=== PATIENT | female | born 1980 | race Caucasian/White ===

== ENCOUNTER 2017-01-03 18:24 | Emergency (ER) | payer OTHER ==
[2017-01-03 18:36] VITALS: BP 149/88
--- NOTE | 2017-01-03 19:18 | ER Document Report ---
ED Medical Screen (RME) - General Chief Complaint: Headache Stated Complaint: NAUSEA,VOMITING,SORE THROAT Time Seen by Provider: 01/03/17 19:05 Mode of Arrival: Ambulatory Information source: Patient TRAVEL OUTSIDE OF THE [place] 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 SHUNT REMOVED 2 YRS AGO Quality of pain: Achy, Dull Severity: Moderate Associated Symptoms: Nausea, Vomiting, Other - TINNITUS L. EAR, L. FACIAL NUMBNESS, DYSPHAGIA Exacerbated by: Denies Relieved by: Denies Similar symptoms previously: Yes - PRIOR TO SHUNT Recently seen / treated by doctor: Yes - 2 d AGO, TREATED FOR "FLUID IN EAR" - Related Data Smoking: Non-smoker Frequency of alcohol use: Occasional Drug Abuse: None Allergies/Adverse Reactions: ketorolac tromethamine [From Toradol] Allergy (Severe, Verified 01/03/17 18:32) Anaphylaxis metoclopramide HCl [From Reglan] Allergy (Severe, Verified 01/03/17 18:32) Anaphylaxis prochlorperazine edisylate [From Compazine] Allergy (Severe, Verified 01/03/17 18:32) Anaphylaxis prochlorperazine maleate [From Compazine] Allergy (Severe, Verified 01/03/17 18: 32) Anaphylaxis codeine [Codeine] Allergy (Verified 01/03/17 18:32) fentanyl [Fentanyl] Allergy (Verified 01/03/17 18:32) Past Medical History - General Information source: Patient - Social History Cigarette use (# per day): No Frequency of alcohol use: Occasional Drug Abuse: None Lives with: Family Family history: Reviewed & Not Pertinent - Past Medical History Cardiac Medical History: Denies: Hx Coronary Artery Disease, Hx Heart Attack, Hx Hypertension Pulmonary Medical History: Reports: Hx Bronchitis Denies: Hx Asthma, Hx COPD, Hx Pneumonia Neurological Medical History: Reports: Hx Seizures - 1 seizure. Denies: Hx Cerebrovascular Accident Renal/ Medical History: Reports: Hx Kidney Stones, Hx Ovarian Cysts. Denies: Hx Peritoneal Dialysis Musculoskeltal Medical History: Denies Hx Arthritis Psychiatric Medical History: Reports: Hx Anxiety Past Surgical History: Reports: Hx Appendectomy, Hx Section - x2, Hx Cholecystectomy, Hx Kidney (Renal Surgery) - Paresh kidney stents, Hx Neurologic Surgery - TAX PROCESSOR shunt (2002), shunt assist (November 2011), Hx TAX PROCESSOR Shunt - Immunizations Hx Diphtheria, Pertussis, Tetanus Vaccination: Yes Review of Systems - Review of Systems Constitutional: No symptoms reported. denies: Chills, Fever EENT: See HPI Cardiovascular: No symptoms reported Respiratory: No symptoms reported Gastrointestinal: See HPI Musculoskeletal: See HPI, Neck pain Skin: No symptoms reported Neurological/Psychological: See HPI, Headaches, Numbness Physical Exam - Vital signs Vitals: Temp Pulse Resp BP Pulse Ox 98.5 F 109 H 16 149/88 H 98 01/03/17 18:32 01/03/17 18:32 01/03/17 18:32 01/03/17 18:32 01/03/17 18:32 Interpretation: Hypertensive, Tachycardic. No: Tachypneic, Febrile - General General appearance: Appears well, Alert In distress: None - HEENT Head: Normocephalic, Tenderness - MILD, OVER L. MASTOID Eyes: Normal Ears: Normal External canal: Normal Tympanic membrane: Normal Course - Vital Signs Vital signs: Temp Pulse Resp BP Pulse Ox 98.5 F 109 H 16 149/88 H 98 01/03/17 18:32 01/03/17 18:32 01/03/17 18:32 01/03/17 18:32 01/03/17 18:32
[2017-01-03] MEDS ORDERED: HALOPERIDOL LACTATE INJ 5 MG/1 ML VIAL IV ONE (19:52)
[2017-01-03] MEDS ORDERED: DIPHENHYDRAMINE HCL 50 MG/ML VIAL IV ONE ×2 (19:52→20:57)
[2017-01-03] MEDS ORDERED: DEXAMETHASONE SOD PHOS INJ 10 MG/1 ML VIAL IV ONE (19:53)
--- NOTE | 2017-01-03 20:01 | RADIOLOGY REPORT (SQ) ---
EXAM DESCRIPTION: CT HEAD WITHOUT COMPLETED DATE/TIME: 01/03/2017 7:26 pm REASON FOR STUDY: HEADACHE, H/O CYST HYDROCEPHALUS COMPARISON: 08/28/2015 TECHNIQUE: Axial images acquired through the brain without intravenous contrast. Images reviewed wi th bone, brain and subdural windows. Images stored on PACS. All CT scanners at this facility use dose modulation, iterative reconstruction, and/or weight based d osing when appropriate to reduce radiation dose to as low as reasonably achievable (ALARA). [facility]: Dose Right [facility]: CareDose [facility]: Dose Right [facility]: Teradose 4D [facility]: Novavax RADIATION DOSE: Up-to-date CT equipment and radiation dose reduction techniques were employed. CTDIv ol: 64.6 mGy. DLP: 1034 mGy-cm. mGy. LIMITATIONS: None. FINDINGS: VENTRICLES: Normal size and contour. CEREBRUM: Stable volume loss right temporal lobe compatible with prior surgery/cyst appear No masses. No hemorrhage. No midline shift. Normal ward/white matter differentiation. No evidence for acute infarction. CEREBELLUM: No masses. No hemorrhage. No alteration of density. No evidence for acute infarction. EXTRAAXIAL SPACES: No fluid collections. No masses. ORBITS AND GLOBE: No intra- or extraconal masses. Normal contour of globe without masses. CALVARIUM: No fracture. PARANASAL SINUSES: No fluid or mucosal thickening. SOFT TISSUES: No mass or hematoma. OTHER: Intracranial portion of shunt catheter remains in place however the extracranial portion has b een removed. IMPRESSION: PARTIAL REMOVAL OF RIGHT TEMPORAL LOBE SHUNT CATHETER. OTHERWISE STABLE NONCONTRAST CT APPEARANCE OF THE HEAD. TECHNICAL DOCUMENTATION: JOB ID: [id number] Quality ID # [id number]: Final reports with documentation of one or more dose reduction techniques (e.g., Au tomated exposure control, adjustment of the mA and/or kV according to patient size, use of iterative reconstruction technique) 2010 [employer]- All Rights Reserved
--- NOTE | 2017-01-03 20:07 | RADIOLOGY REPORT (SQ) ---
EXAM DESCRIPTION: CT SOFT TISSUE NECK WITHOUT COMPLETED DATE/TIME: 01/03/2017 7:26 pm REASON FOR STUDY: HEADACHE, H/O CYST HYDROCEPHALUS COMPARISON: CORRELATION MADE TO CHEST CT FROM 02/23/2016 TECHNIQUE: Noncontrast scanning from skull base through lung apices with review of bone, soft tissue and lung windows. Reconstructed coronal and sagittal MPR images reviewed. All images stored on PAC S. All CT scanners at this facility use dose modulation, iterative reconstruction, and/or weight based d osing when appropriate to reduce radiation dose to as low as reasonably achievable (ALARA). [facility]: Dose Right [facility]: CareDose [facility]: Dose Right [facility]: Teradose 4D [facility]: [employer] RADIATION DOSE: Up-to-date CT equipment and radiation dose reduction techniques were employed. CTDIv ol: 15.9 mGy. DLP: 516 mGy-cm. mGy. LIMITATIONS: None. FINDINGS: SKULL BASE: Intact. MAJOR SALIVARY GLANDS: No solid or cystic masses. No inflammatory changes. LYMPHADENOPATHY: No adenopathy. MUCOSAL MASSES OR ASYMMETRY: No mucosal masses or asymmetry. LARYNX/CORDS: No abnormal findings. LUNG APICES: Stable 4 mm right upper lobe pulmonary nodule. BONES: Intact. THYROID: Normal size. No masses. PARANASAL SINUSES: Clear. OTHER: Interval removal of extracranial portion shunt catheter. IMPRESSION: NO SIGNIFICANT FINDING IN THE SOFT TISSUES OF THE NECK. INTERVAL REMOVAL EXTRACRANIAL P ORTION SHUNT CATHETER. TECHNICAL DOCUMENTATION: JOB ID: [id number] Quality ID # [id number]: Final reports with documentation of one or more dose reduction techniques (e.g., Au tomated exposure control, adjustment of the mA and/or kV according to patient size, use of iterative reconstruction technique) 2010 [employer]- All Rights Reserved
[2017-01-03] MEDS ORDERED: NORMAL SALINE 1000 ML 1,000 ML IV ONE (20:57)
[2017-01-03] MEDS ORDERED: ONDANSETRON HCL INJ/PF 4 MG/2 ML SDV IV ONE (20:58)
[2017-01-03] MEDS ORDERED: ONDANSETRON 4 MG TAB.RAPDIS PO ONE (21:52)
[2017-01-03] MEDS ORDERED: MORPHINE SULFATE IR 15 MG TABLET PO ONE (21:53)
[2017-01-03] MEDS ORDERED: HYDROCODONE/ACETAMINOPHEN 5-325 MG 6 TAB/DSPK PO PRN (23:08)
--- NOTE | 2017-01-03 23:09 | ER Document Report ---
ED Headache - General Chief Complaint: Headache Stated Complaint: NAUSEA,VOMITING,SORE THROAT Time Seen by Provider: 01/03/17 19:05 Mode of Arrival: Ambulatory Notes: Patient is a 36-year-old female with a past medical history of a prior brain cyst that was medically managed and did have a MOUNTAIN BIKE GUIDE shunt until 2013 who presents with 3 days of a bitemporal, throbbing, constant headache. She notes an associated pain over her temporomandibular junction on the left. She has seen her primary care doctor regarding this concern was started on muscle relaxers that did not improve her symptoms. She has a history of similar headaches in the past. Her headache did start gradually got progressively worse. She notes associated photophobia and phonophobia as well as nausea and vomiting. Denies any weakness, numbness, altered mental status. TRAVEL OUTSIDE OF THE [place] IN LAST 30 DAYS: No - Related Data Allergies/Adverse Reactions: ketorolac tromethamine [From Toradol] Allergy (Severe, Verified 01/03/17 18:32) Anaphylaxis metoclopramide HCl [From Reglan] Allergy (Severe, Verified 01/03/17 18:32) Anaphylaxis prochlorperazine edisylate [From Compazine] Allergy (Severe, Verified 01/03/17 18:32) Anaphylaxis prochlorperazine maleate [From Compazine] Allergy (Severe, Verified 01/03/17 18: 32) Anaphylaxis codeine [Codeine] Allergy (Verified 01/03/17 18:32) fentanyl [Fentanyl] Allergy (Verified 01/03/17 18:32) Past Medical History - General Information source: Patient - Social History Smoking Status: Never Smoker Cigarette use (# per day): No Chew tobacco use (# tins/day): No Frequency of alcohol use: None Drug Abuse: None Lives with: Family Family History: Reviewed & Not Pertinent - Past Medical History Cardiac Medical History: Denies: Hx Coronary Artery Disease, Hx Heart Attack, Hx Hypertension Pulmonary Medical History: Reports: Hx Bronchitis Denies: Hx Asthma, Hx COPD, Hx Pneumonia Neurological Medical History: Reports: Hx Seizures - 1 seizure. Denies: Hx Cerebrovascular Accident Renal/ Medical History: Reports: Hx Kidney Stones, Hx Ovarian Cysts. Denies: Hx Peritoneal Dialysis Musculoskeltal Medical History: Denies Hx Arthritis Psychiatric Medical History: Reports: Hx Anxiety Past Surgical History: Reports: Hx Appendectomy, Hx Section - x2, Hx Cholecystectomy, Hx Kidney (Renal Surgery) - Paresh kidney stents, Hx Neurologic Surgery - MOUNTAIN BIKE GUIDE shunt (2002), shunt assist (November 2011), Hx MOUNTAIN BIKE GUIDE Shunt - Immunizations Hx Diphtheria, Pertussis, Tetanus Vaccination: Yes Review of Systems - Review of Systems Notes: Constitutional: Negative for fever. HENT: Negative for sore throat. Eyes: Negative for visual changes. Cardiovascular: Negative for chest pain. Respiratory: Negative for shortness of breath. Gastrointestinal: Negative for abdominal pain, positive for nausea Genitourinary: Negative for dysuria. Musculoskeletal: Negative for back pain. Skin: Negative for rash. Neurological: Positive for headaches, negative for weakness or numbness. 10 point ROS negative except as marked above and in HPI. Physical Exam - Vital signs Vitals: Temp Pulse Resp BP Pulse Ox 98.5 F 109 H 16 149/88 H 98 01/03/17 18:32 01/03/17 18:32 01/03/17 18:32 01/03/17 18:32 01/03/17 18:32 Interpretation: Tachycardic Notes: PHYSICAL EXAMINATION: GENERAL: Well-appearing, well-nourished and in no acute distress. HEAD: Atraumatic, normocephalic. EYES: Pupils equal round and reactive to light, extraocular movements intact, sclera anicteric, conjunctiva are normal. ENT: nares patent, oropharynx clear without exudates. Moist mucous membranes. Focal pain on palpation of the left temporomandibular junction NECK: Normal range of motion, supple without lymphadenopathy LUNGS: Breath sounds clear to auscultation bilaterally and equal. No wheezes rales or rhonchi. HEART: Regular rate and rhythm without murmurs ABDOMEN: Soft, nontender, normoactive bowel sounds. No guarding, no rebound. No masses appreciated. EXTREMITIES: Normal range of motion, no pitting or edema. No cyanosis. NEUROLOGICAL: Face symmetric. Tongue protrudes midline. Extraocular motions intact. Pupils are 2 mm and equally reactive. Normal speech, normal gait. 5 out of 5 strength in both the distal and proximal upper and lower extremities bilaterally. Sensation is grossly intact throughout. Finger to nose testing normal. Pronator drift normal. PSYCH: Normal mood, normal affect. SKIN: Warm, Dry, normal turgor, no rashes or lesions noted. Course - Re-evaluation Re-evalutation: 01/03/17 23:06 Presentation of a headache that appears to be most consistent with tension versus migrainous type headache. Given the patient does have focal tenderness to the left temporomandibular junction TMJ is also on the differential. Headache was not maximal in onset, patient has no focal neurologic deficits, no nuchal rigidity, vital signs within normal limits, no papilledema, and patient is overall well in appearance. Based on clinical history and examination I do not suspect an acute subarachnoid hemorrhage, dural venous sinus thrombosis, acute meningitis, or intercranial mass. Does have a history of a brain cyst with a prior MOUNTAIN BIKE GUIDE shunt that was removed in 2013. A CT of the head and neck did not demonstrate any acute findings and shows stable changes without any evidence of increased intracranial pressure relative to the prior study when she had a shunt. Patient has had resolution of her pain here after administration of a migraine cocktail as well as some oral morphine. At this time will discharge with return precautions and follow-up recommendations. Verbal discharge instructions given a the bedside and opportunity for questions given. Medication warnings reviewed. Patient is in agreement with this plan and has verbalized understanding of return precautions and the need for primary care follow-up in the next 24-72 hours. - Vital Signs Vital signs: Temp Pulse Resp BP Pulse Ox 98.5 F 109 H 16 149/88 H 98 01/03/17 18:32 01/03/17 18:32 01/03/17 18:32 01/03/17 18:32 01/03/17 18:32 - Diagnostic Test Radiology reviewed: Reports reviewed Discharge - Discharge Clinical Impression: TMJ (temporomandibular joint syndrome) Headache Qualifiers: Headache type: unspecified Headache chronicity pattern: acute headache Intractability: not intractable Qualified Code(s): R51 - Headache Condition: Good Disposition: HOME, SELF-CARE Additional Instructions: You have been seen in the Emergency Department (ED) for a headache. Please use Tylenol (acetaminophen) or Motrin (ibuprofen) as needed for symptoms, but only as written on the box. As we have discussed, please follow up with your primary care doctor as soon as possible regarding today's ED visit and your headache symptoms. Call your doctor or return to the ED if you have a worsening headache, sudden and severe headache, confusion, slurred speech, facial droop, weakness or numbness in any arm or leg, extreme fatigue, or other symptoms that concern you.
== END 2017-01-03 23:24 | disposition home or self-care (01) ==
LOC: ER 18:24
DX: R51 Headache (principal); M26.622 Arthralgia of left temporomandibular joint; R11.2 Nausea with vomiting, unspecified; R00.0 Tachycardia, unspecified; H53.149 Visual discomfort, unspecified; Z86.69 Personal history of other diseases of the nervous system and sense organs; Z98.890 Other specified postprocedural states; Z88.5 Allergy status to narcotic agent; Z87.892 Personal history of anaphylaxis; Z88.8 Allergy status to other drugs, medicaments and biological substances
CPT/HCPCS: 99284; 96374; 96375; 70450; 70490; S0119; J1630; J1100